=== PATIENT | female | born 1990 | race Caucasian/White ===

== ENCOUNTER → 2016-08-28 | Outpatient (CLI) | payer OTHER ==
--- NOTE | 2016-08-28 18:33 | MR ---
EXAMINATION TYPE: MR brain wo con DATE OF EXAM: 08/28/2016 6:18 PM COMPARISON: NONE HISTORY: SYNCOPE AND COLLAPSE T1-weighted sagittal, T2, FLAIR, and diffusion axial, and T2 coronal coronal views of the brain are s ubmitted. There is no evidence of acute ischemia. The ventricles, basal cisterns, and sulci overlying the conv exities are consistent with the patient's age. There is no mass effect. There are changes of moderate chronic sinusitis. Craniocervical junction maintained. Sella turcica h as a normal appearance. IMPRESSION: 1. No acute intracranial process. 2. Moderate chronic sinusitis.
== END | disposition home or self-care (01) ==
LOC: RADMRIMAIN 17:40
PROVIDERS: ATTEND Psychiatry & Neurology Neurology
DX: R55 Syncope and collapse (principal)
CPT/HCPCS: 70551

== ENCOUNTER 2016-09-26 10:04 | Emergency (ER) | payer OTHER ==
[2016-09-26 10:16] VITALS: BP 138/75; PULSE 96; RESP 18; TEMP 98.3
[2016-09-26] MEDS ORDERED: DIPH,PERTUS(ACELL)TETVAC-LF 0.5 ML VIAL IM ONE (10:36)
--- NOTE | 2016-09-26 10:37 | ED ---
Lower Extremity Injury HPI - General Chief Complaint: Extremity Injury, Lower Stated Complaint: left knee injury from fall Time Seen by Provider: 09/26/16 10:19 Source: patient, RN notes reviewed Mode of arrival: wheelchair Limitations: no limitations - History of Present Illness Initial Comments: 26-year-old female presents emergency Department with chief complaint of left knee pain. Patient states that she was leaving her rug shampooer in which she slipped on the ice falling onto her left knee. Patient states she has medial left knee pain. Patient denies any other major injuries. She states she does have some abrasions to her hands. Patient states she's not up-to-date on her tetanus. Patient states that she is able bear some weight on her left knee though states it is very painful. Patient denies any clicking or popping. She states there is no bruising but states her some swelling. - Related Data Home Medications Medication Instructions Recorded Confirmed HYDROcodone/APAP 10-325MG [Theodosia 1 tab PO Q4HR PRN 09/26/16 09/26/16 10-325] Lessina Control 1 tab PO DAILY 09/26/16 09/26/16 Methocarbamol [Robaxin] 750 mg PO BID 09/26/16 09/26/16 Sulindac [Clinoril] 200 mg PO BID 09/26/16 09/26/16 Allergies Allergy/AdvReac Type Severity Reaction Status Date / Time cat dander Allergy Unknown Verified 09/26/16 10:21 Review of Systems ROS Statement: Those systems with pertinent positive or pertinent negative responses have been documented in the HPI. ROS Other: All systems not noted in ROS Statement are negative. Past Medical History Additional Past Medical History / Comment(s): pcos pigment deficiency cholesteral is high History of Any Multi-Drug Resistant Organisms: None Reported Past Surgical History: Back Surgery Additional Past Surgical History / Comment(s): wisdom teeth Past Psychological History: No Psychological Hx Reported Smoking Status: Current every day smoker Past Alcohol Use History: None Reported Past Drug Use History: Marijuana General Exam Limitations: no limitations General appearance: alert, in no apparent distress Head exam: Present: atraumatic, normocephalic, normal inspection Neck exam: Present: normal inspection, full ROM. Absent: tenderness, meningismus, lymphadenopathy Respiratory exam: Present: normal lung sounds bilaterally. Absent: respiratory distress, wheezes, rales, rhonchi, stridor Cardiovascular Exam: Present: regular rate, normal rhythm, normal heart sounds. Absent: systolic murmur, diastolic murmur, rubs, gallop, clicks Extremities exam: Present: other (Left knee there is mild medial knee tenderness , some anterior to medial tenderness there is no ecchymosis is mild swelling pain with valgus and varus is no laxity noted with anterior posterior drawer there is no tenderness above or below the left knee pulses are equal bilaterally ) Skin exam: Present: warm, dry, intact, normal color, other (Abrasions noted to right and left hand along the MCPs). Absent: rash Course Vital Signs 09/26/16 10:12 Temperature 98.3 F Pulse Rate 96 Respiratory 18 Rate Blood Pressure 138/75 O2 Sat by Pulse 97 Oximetry Medical Decision Making - Medical Decision Making 26-year-old female presented for left knee pain. Patient did have a slip and fall. Patient will place a knee immobilizer at this time and follow-up with orthopedics on-call as needed. Return parameters were discussed. Patient does take Theodosia 10/325 at home currently. Disposition Clinical Impression: Fall from slipping on ice, Left knee sprain Disposition: HOME SELF-CARE Condition: Stable Instructions: Knee Sprain (ED) Additional Instructions: Please return to the Emergency Department if symptoms worsen or any other concerns. Referrals: Joshua Beyer MD [Primary Care Provider] - 1-2 days William Ware MD [STAFF PHYSICIAN] - 1-2 days Time of Disposition: 10:50
--- NOTE | 2016-09-26 10:45 | XR ---
EXAMINATION TYPE: XR knee complete LT DATE OF EXAM: 09/26/2016 10:38 AM COMPARISON: NONE HISTORY: Pain FINDINGS: Hypertrophic change along the medial compartment of the knee. No erosive change. Osseous structures a re intact. No acute fracture seen. IMPRESSION: 1. No acute fracture or dislocation.
== END 2016-09-26 11:16 | disposition home or self-care (01) ==
LOC: EC 10:04
DX: S83.92XA Sprain of unspecified site of left knee, initial encounter (principal); F17.200 Nicotine dependence, unspecified, uncomplicated; W00.0XXA Fall on same level due to ice and snow, initial encounter; Z91.048 Other nonmedicinal substance allergy status; Z79.3 Long term (current) use of hormonal contraceptives; Z79.899 Other long term (current) drug therapy; Z79.1 Long term (current) use of non-steroidal anti-inflammatories (NSAID); Z23 Encounter for immunization
CPT/HCPCS: 99283; 73562; 90715; L1830; 90471

== ENCOUNTER → 2016-10-16 | Outpatient (CLI) | payer OTHER ==
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
== END | disposition home or self-care (01) ==
LOC: RADMRIMAIN 10:26
PROVIDERS: ATTEND Family Medicine
DX: S83.242A Other tear of medial meniscus, current injury, left knee, initial encounter (principal); S83.282A Other tear of lateral meniscus, current injury, left knee, initial encounter; S83.412A Sprain of medial collateral ligament of left knee, initial encounter; M22.42 Chondromalacia patellae, left knee

== ENCOUNTER 2019-05-18 22:52 | Observation (INO) | payer OTHER ==
[2019-05-18] MEDS ORDERED: MAG HYDROX/AL HYDROX/SIMETH 30 ML CUP PO PRN (23:29)
[2019-05-18] MEDS ORDERED: IBUPROFEN 400 MG TAB PO PRN (23:29)
[2019-05-18] MEDS ORDERED: ONDANSETRON 4 MG/2 ML VIAL IVP PRN (23:29)
[2019-05-18] MEDS ORDERED: NALOXONE 0.4 MG/ML 1 ML VIAL IV PRN (23:29)
[2019-05-18] MEDS ORDERED: ACETAMINOPHEN TAB 325 MG TAB PO PRN (23:29)
[2019-05-18] MEDS ORDERED: SODIUM CHLORIDE 0.9% 1,000 ML IV SCH (23:30)
[2019-05-18] MEDS ORDERED: ALPRAZolam 0.25 MG TAB PO PRN (23:31)
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
[2019-05-19] MEDS ORDERED: metFORMIN 500 MG TAB PO SCH (09:00)
[2019-05-19] MEDS ORDERED: SPIRONOLACTONE 25 MG TAB PO SCH (09:00)
[2019-05-19] MEDS ORDERED: HYDROcodone/APAP 10-325MG 1 EACH TAB PO PRN (12:27)
[2019-05-19] MEDS ORDERED: METHOCARBAMOL 750 MG TAB PO PRN (12:27)
--- NOTE | 2019-05-19 13:49 | P.HPIM ---
History of Present Illness 28-year-old pleasant female came in after a new onset seizure seizure was witnessed by family member family is at bedside apparently it was a tonic-clonic activity patient lost consciousness for a few minutes and that they have been biting did not lose bowel or bladder continencehis no clear postictal state as per the patient. Patient never had any seizures in the past never had any seizures when she was Young. Patient was not initiated on antiplatelet medications and EEG was ordered and neurology was consulted patient will be on seizure precautions. Patient has some chronic knee issues for and the back issues because of which patient is on methocarbamol and Juliaetta.patient denied any fever chills, dysuria. CAT scan at the other facility did not show any significant abnormality. Patient may needMRI, that decision will be left to neurology Review of Systems REVIEW OF SYSTEMS: CONSTITUTIONAL: No fever, no malaise, no fatigue. HEENT: No recent visual problems or hearing problems. Denied any sore throat. CARDIOVASCULAR: No chest pain, orthopnea, PND, no palpitations, no syncope. PULMONARY: No shortness of breath, no cough, no hemoptysis. GASTROINTESTINAL: No diarrhea, no nausea, no vomiting, no abdominal pain. NEUROLOGICAL: as mentioned in HPI. HEMATOLOGICAL: Denies any bleeding or petechiae. GENITOURINARY: Denies any burning micturition, frequency, or urgency. MUSCULOSKELETAL/RHEUMATOLOGICAL: Denies any joint pain, swelling, or any muscle pain. ENDOCRINE: Denies any polyuria or polydipsia. The rest of the 14-point review of systems is negative. Past Medical History Additional Past Medical History / Comment(s): polycytic ovarian syndrome pigment deficiency cholesterol is high History of Any Multi-Drug Resistant Organisms: None Reported Past Surgical History: Back Surgery, Cholecystectomy Additional Past Surgical History / Comment(s): wisdom teeth Past Anesthesia/Blood Transfusion Reactions: No Reported Reaction Past Psychological History: Anxiety Smoking Status: Current every day smoker Past Alcohol Use History: None Reported Past Drug Use History: Marijuana - Past Family History Father Family Medical History: Diabetes Mellitus, Hyperlipidemia, Hypertension Mother Family Medical History: Hyperlipidemia, Hypertension Additional Family Medical History / Comment(s): skin cancer Medications and Allergies Home Medications Medication Instructions Recorded Confirmed Type HYDROcodone/APAP 10-325MG [Julia[place] 1 tab PO BID PRN 09/26/16 05/18/19 History 10-325] Methocarbamol [Robaxin] 750 mg PO BID PRN 09/26/16 05/18/19 History ALPRAZolam [Xanax] 0.25 mg PO BID PRN 05/18/19 05/18/19 History Spironolactone [Aldactone] 100 mg PO DAILY 05/18/19 05/18/19 History metFORMIN HCL 1,000 mg PO DAILY 05/18/19 05/18/19 History Allergies Allergy/AdvReac Type Severity Reaction Status Date / Time cat dander Allergy Unknown Verified 05/18/19 23:02 Physical Exam Vitals: Vital Signs Temp Pulse Pulse Resp BP BP Pulse Ox 05/19/19 05:00 97.5 F L 84 18 120/77 95 05/19/19 00:35 97.8 F 75 18 121/82 96 05/19/19 00:09 98.0 F 74 16 126/70 98 05/18/19 22:55 97.9 F 81 18 118/62 97 Intake and Output 05/18/19 05/19/19 05/19/19 22:59 06:59 14:59 Intake Total 350 Balance 350 Intake: Oral 350 Other: # Voids 2 Weight 99.79 kg PHYSICAL EXAMINATION: GENERAL: The patient is alert and oriented x3, not in any acute distress. Well developed, well nourished. HEENT: Pupils are round and equally reacting to light. EOMI. No scleral icterus. No conjunctival pallor. Normocephalic, atraumatic. No pharyngeal erythema. No thyromegaly. CARDIOVASCULAR: S1 and S2 present. No murmurs, rubs, or gallops. PULMONARY: Chest is clear to auscultation, no wheezing or crackles. ABDOMEN: Soft, nontender, nondistended, normoactive bowel sounds. No palpable organomegaly. MUSCULOSKELETAL: No joint swelling or deformity. EXTREMITIES: No cyanosis, clubbing, or pedal edema. NEUROLOGICAL: Gross neurological examination did not reveal any focal deficits. SKIN: No rashes. Thrombosis Risk Factor Assmnt - Choose All That Apply Any of the Below Risk Factors Present?: Yes Each Factor Represents 1 point: Obesity (BMI >25) Other Risk Factors: No Other congenital or acquired thrombophilia - If yes, enter type in comment: No Thrombosis Risk Factor Assessment Total Risk Factor Score: 1 Thrombosis Risk Factor Assessment Level: Low Risk Assessment and Plan Plan: -possible new onset seizure: PEG as mentioned above, MRI as per neurology. Counseled the patient that she cannot drive for about 6 months she has to be seizure-free for [address] [place] [employer]. -polycystic ovarian disease for which patient is on metformin which will be continued -Nicotine abuse: Counseling was provided -Chronic back pain and left knee pain at home pain medications will be resumed. -DVT prophylaxis early ambulation
[2019-05-19 14:03] VITALS: BP 119/71; PULSE 68; RESP 16; TEMP 98.4
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
--- NOTE | 2019-05-19 16:32 | P.DS ---
Providers Date of admission: 05/18/19 23:31 Expected date of discharge: 05/19/19 Attending physician: Augustin Hogan Consults: 05/18/19 23:30 Consult Physician Routine Consulting Provider: Chuyita Perdue Consult Reason/Comments: New-onset seizure Do you want consulting provider notified?: Yes Primary care physician: Joshua Beyer [facility] Course: Final diagnosis Possible new onset seizure Polycystic ovarian disease Nicotine abuse Chronic back pain and left knee pain DVT prophylaxis Discharge disposition Patient is being discharged in a stable condition with guarded prognosis to home. Neurology has seen the patient and an EEG was done and is pending at this time. Neurology will personally call the patient if any abnormalities are found. Patient was started on Keppra 750 mg twice a day and will follow up with neurology in the outpatient setting. Total time taken is 35 minutes. Please refer to initial history and physical done today. Patient Condition at Discharge: Good Plan - Discharge Summary New Discharge Prescriptions: New levETIRAcetam [Keppra] 750 mg PO Q12HR 30 Days #60 tab Continue Methocarbamol [Robaxin] 750 mg PO BID PRN PRN Reason: Muscle Pain HYDROcodone/APAP 10-325MG [[place] 10-325] 1 tab PO BID PRN PRN Reason: Pain Spironolactone [Aldactone] 100 mg PO DAILY ALPRAZolam [Xanax] 0.25 mg PO BID PRN PRN Reason: Anxiety Discontinued metFORMIN HCL 1,000 mg PO DAILY Discharge Medication List HYDROcodone/APAP 10-325MG [[place] 10-325] 1 tab PO BID PRN 09/26/16 [History] Methocarbamol [Robaxin] 750 mg PO BID PRN 09/26/16 [History] ALPRAZolam [Xanax] 0.25 mg PO BID PRN 05/18/19 [History] Spironolactone [Aldactone] 100 mg PO DAILY 05/18/19 [History] levETIRAcetam [Keppra] 750 mg PO Q12HR 30 Days #60 tab 05/19/19 [Rx] Follow up Appointment(s)/Referral(s): Joshua Beyer MD [Primary Care Provider] - 1-2 days Patient Instructions/Handouts: New-Onset Seizure in Adults (ED) Activity/Diet/Wound Care/Special Instructions: Activity Limited until follow-up Patient was seen by neurology and cleared and neurologist will call patient personally to discuss EEG results if there are any abnormalities. Patient will need to follow-up with neurology outpatient Patient is to follow-up with primary care provider upon discharge Metformin will be held at this time and is to follow-up with primary care pro vider New current diet As discussed with neurology patient should not be driving for at least one month due to seizure activity Patient is being started on Keppra and will need neurology follow-up Discharge Disposition: HOME SELF-CARE
[2019-05-19] MEDS ORDERED: levETIRAcetam 250 MG TAB PO SCH (21:00)
--- NOTE | 2019-05-19 22:47 | EEG ---
ELECTROENCEPHALOGRAM REPORT DATE OF PROCEDURE: 05/19/2019 ELECTROENCEPHALOGRAM (EEG) REPORT: TECHNIQUE: A routine 18-channel EEG was performed with video using the 10/20 international electrode placement system. HISTORY: Seizure-like activity. The patient was at the [facility] and complained of dizziness and fell face first in the water. Patient had body twitching, eyes rolled back, and she bit her tongue. CURRENT MEDICATIONS: 1. Metformin. 2. Xanax. STUDY DURATION: 25 minutes. FINDINGS: BACKGROUND: The background activity consisted of 9-10 Hz rhythmic waveforms symmetrically distributed over both posterior quadrants. ACTIVATION: Hyperventilation: Induced mild physiological slowing. Photic stimulation: Symmetric driving seen. Sleep: Stages I and II sleep noted. ABNORMALITIES: None. Please note that one channel of this EEG was dedicated to EKG. It demonstrated a sinus rhythm. IMPRESSION: Normal EEG. No epileptiform activity was present. No seizures were recorded. MMODL / IJN: [id number] / [id number]
== END 2019-05-19 17:09 | disposition home or self-care (01) ==
LOC: EC 22:52 → 4MS4W 23:31
PROVIDERS: ADMIT Hospitalist; ATTEND Hospitalist
DX: R56.9 Unspecified convulsions (principal); S00.532A Contusion of oral cavity, initial encounter; R41.0 Disorientation, unspecified; R42 Dizziness and giddiness; E28.2 Polycystic ovarian syndrome; E78.5 Hyperlipidemia, unspecified; E11.9 Type 2 diabetes mellitus without complications; F17.200 Nicotine dependence, unspecified, uncomplicated; F12.90 Cannabis use, unspecified, uncomplicated; F41.9 Anxiety disorder, unspecified; E78.00 Pure hypercholesterolemia, unspecified; L81.9 Disorder of pigmentation, unspecified; G89.29 Other chronic pain; M25.562 Pain in left knee; M54.9 Dorsalgia, unspecified; E66.9 Obesity, unspecified; Z68.39 Body mass index [BMI] 39.0-39.9, adult; Z79.84 Long term (current) use of oral hypoglycemic drugs; Z79.891 Long term (current) use of opiate analgesic; Z79.899 Other long term (current) drug therapy; Z91.048 Other nonmedicinal substance allergy status; Z87.828 Personal history of other (healed) physical injury and trauma; Z90.49 Acquired absence of other specified parts of digestive tract; Z82.49 Family history of ischemic heart disease and other diseases of the circulatory system; Z80.8 Family history of malignant neoplasm of other organs or systems; Z83.3 Family history of diabetes mellitus; X58.XXXA Exposure to other specified factors, initial encounter
CPT/HCPCS: 99285; 95819; G0378 ×2

== ENCOUNTER 2019-07-21 09:08 | Day surgery (SDC) | payer OTHER ==
[2019-07-15 11:54] VITALS: BMI 38.9
[~2019-07-21 09:08] MED LIST: LACTATED RINGERS 1,000 ML IV SCH
[2019-07-21 10:35] VITALS: TEMP 97.9
[2019-07-21 10:43] LABS: Glucose,Whole Blood 101 mg/dL (75-99)
--- NOTE | 2019-07-21 11:21 | P.PCN ---
Date of Procedure: 07/21/19 Procedure(s) Performed: Preoperative diagnosis:1- Normal pressure hydrocephalus. 2-seizure Post operative diagnoses: Same as preop diagnosis Anesthesia = moderate sedation with Versed 2 mg and fentanyl 50 g ,and local infiltration with lidocaine 1% 2 mL. Condition: stable Complication: none. Description of the procedure procedure risk and benefits discussed with the patient , consent signed. Patient and the procedure area placed in Left lateral decubitus position , sedation queuing to decrease the patient's anxiety , patient's monitored throughout the procedure ,back prepped with chlorhexidine 3 times been local infiltration of the skin and subcutaneous tissue with lidocaine 1% 2 mL for skin and subcu interstitial frustrations at L4 5 levels then 22- gauge Quincke-type needle advanced slowly at L4- 5 interlaminar space there was positive cerebrospinal fluid which was clear, no heme, no paresthesia ,total of 10 ML of clear cerebrospinal fluid collected in 4 different tubes 2-2-1/2 mL in each, then the needle removed and a Band-Aid applied and patient tolerated the procedure well without any complications. Opening pressure was 16 cm of water.
[2019-07-21] MEDS ORDERED: IV FLUID CONTINUATION 1,000 ML IV ONE (11:32)
[2019-07-21 11:36] VITALS: PULSE 68; RESP 16
[2019-07-21 11:55] VITALS: BP 113/70
[2019-07-21 12:50] LABS: Glucose,CSF 52 mg/dL (40-70); Total Protein,CSF 40 mg/dL (12-60)
[2019-07-21 15:12] LABS: Appearance,CSF Clear; CSF Tube Number 4; Nucleated Cells, CSF 0 u/L (0-5); Red Blood Cell,CSF 109 u/L (0-10)
[2019-07-21 15:16] LABS: Red Blood Cell, CSF Crenated 20 %; Red Blood Cell, CSF Fresh 80 %
== END 2019-07-21 12:29 | disposition home or self-care (01) ==
LOC: ORPAIN 09:08
PROVIDERS: ATTEND Specialist
DX: G91.2 (Idiopathic) normal pressure hydrocephalus (principal); G93.2 Benign intracranial hypertension; R56.9 Unspecified convulsions
CPT/HCPCS: 81025; 88108; 84157; 82945; 89050; 62270; J2250; J3010; 99152